=== PATIENT | male | born 1980 | race African-American/Black ===

== ENCOUNTER 2018-05-12 12:32 | Emergency (ER) | payer SELFPAY ==
[2018-05-12 12:46] VITALS: BP 146/93
[2018-05-12] MEDS ORDERED: LIDOCAINE 5% (700 MG) TRANSDERMAL ADH..PATCH TP ONE (12:53)
[2018-05-12] MEDS ORDERED: KETOROLAC TROMETHAMINE 60 MG/2 ML SDV IM ONE (12:53)
--- NOTE | 2018-05-12 12:57 | ER Document Report ---
HPI - HPI Time Seen by Provider: 05/12/18 12:48 Pain Level: 5 Notes: Patient is a 37-year-old male with a h/o opiod dependence previously being on suboxone who presents to the ED complaining of mildline lower back pain times 1 day. Patient states that he was working on his car and was bending over when he stood up and felt a sharp pain in his back. Patient states that bending twisting of the trunk make his pain worse. Pain does not radiate. He is eating and drinking without any difficulties. He is urinating normally and having normal bowel movements. He has not had any injections or procedures to his lower back. Denies any IV drug abuse or history of spinal abscess. No other concerns or complaints. Denies any headache, fever, head injury, neck pain, changes in vision/speech/mentation/hearing, URI, sore throat, chest pain, palpitations, syncope, cough, shortness of breath, wheeze, dyspnea, abdominal pain, nausea/vomiting/diarrhea, urinary retention, dysuria, hematuria, loss of control of bowel or bladder, numbness/tingling, saddle anesthesia, muscle paralysis/weakness, or rash. 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 LUNGS: Breath sounds clear to auscultation bilaterally and equal. No wheezes rales or rhonchi. HEART: Regular rate and rhythm without murmurs, rubs, gallops. ABDOMEN: Soft, nontender, nondistended abdomen. No guarding, no rebound. No masses appreciated. Normal bowel sounds present. No CVA tenderness bilaterally. No pulsatile mass Musculoskeletal: LE's b/l: FROM to passive/active. Strength 5+/5. No deficits noted. No bony tenderness of extremities. Back: FROM to passive/active. Strength 5+/5. No stepoffs or deformities. No other bony tenderness, erythema, swelling, or ecchymosis. SLR negative b/l. + mild tenderness to the mildline near L2-3. Mild spasming. No SI jt tenderness. No foot drop Extremities: No cyanosis, clubbing, or edema b/l. Peripheral pulses 2+. Capillary refill less than 2 seconds. NEUROLOGICAL: Normal speech, normal gait. Normal sensory, motor exams. Reflexes 2+ b/l. PSYCH: Normal mood, normal affect. SKIN: Warm, Dry, normal turgor, no rashes or lesions noted. - INFECTION CONTROL TRAVEL OUTSIDE OF THE [place] IN LAST 30 DAYS: No Course - Re-evaluation Re-evalutation: 05/12/18 13:51 Patient is an afebrile, well-hydrated, 37-year-old male who presents to the ED with acute low back pain, suspect probable strain/sprain. Vitals are acceptable. PE is otherwise unremarkable for any focal neurological deficits. See XR, reviewed with pt to f/u with ortho. Patient was given Toradol and Lidoderm patch. He has no significant tachycardia, tachypnea, or hypoxia. He is nontoxic-appearing and is tolerating p.o. without difficulties. There are no signs of infection. No other red flag symptoms noted. No other labs or imaging warranted at this time based on H&P. Low suspicion for any meningitis, fracture, expanding/ruptured AAA, cauda equina syndrome, epidural mass lesion/abscess, herniated disc causing severe spinal stenosis, or other systemic infection at this time. Patient is aware that his condition can change from initial presentation and that he needs monitor symptoms closely for any acute changes. I will send him home with a prescription for flexeril and naproxen. Conservative measures otherwise for symptoms. Recheck with your PCM in 3-5 days. Consider consult with orthopedic/physical therapy. Return to the ED with any worsening/concerning symptoms otherwise as reviewed discharge. Patient is in agreement. - Vital Signs Vital signs: Temp Pulse Resp BP Pulse Ox 98.3 F 89 16 146/93 H 98 05/12/18 12:45 05/12/18 12:45 05/12/18 12:45 05/12/18 12:45 05/12/18 12:45 Discharge - Discharge Clinical Impression: Low back pain Qualifiers: Chronicity: acute Back pain laterality: midline Sciatica presence: without sciatica Qualified Code(s): M54.5 - Low back pain Condition: Stable Disposition: HOME, SELF-CARE Instructions: Low Back Pain ([facility]), Stretching Exercises for the Back ([facility]) Additional Instructions: Rest, Ice Tylenol/ibuprofen as needed Light stretches daily Strength exercises as able Moist heat and massage may help F/u with your PCP in 3-5 days for a recheck Consider consult(s) with Orthopedics/physical therapy for ongoing/worsening symptoms Return to the ED with any worsening symptoms and/or development of fever, headache, chest pain, palpitations, syncope, shortness of breath, trouble breathing, abdominal pain, n/v/d, blood in stool/urine, loss of control of bowel/bladder, urinary retention, muscle weakness/paralysis, saddle anesthesia, numbness/tingling, or other worsening symptoms that are concerning to you. Prescriptions: Cyclobenzaprine HCl [Flexeril 10 mg Tablet] 10 mg PO TIDP PRN #15 tab PRN Reason: Naproxen 500 mg PO BID #20 tablet Forms: Elevated Blood Pressure Referrals: [facility] ([facility]) [Provider Group] - Follow up as needed
--- NOTE | 2018-05-12 13:45 | RADIOLOGY REPORT (SQ) ---
EXAM DESCRIPTION: L SPINE WHOLE COMPLETED DATE/TIME: 05/12/2018 1:31 pm REASON FOR STUDY: midline back pain near L2-4 COMPARISON: None. NUMBER OF VIEWS: Five views including obliques. TECHNIQUE: AP, lateral, oblique, and sacral radiographic images acquired of the lumbar spine. LIMITATIONS: None. FINDINGS: MINERALIZATION: Normal. SEGMENTATION: Normal. No transitional anatomy. ALIGNMENT: Grade 1 anterolisthesis of L5 on S1. VERTEBRAE: Maintained height. No fracture or worrisome bone lesion. DISCS: Preserved height. No significant osteophytes or end plate irregularity. POSTERIOR ELEMENTS: Pedicles and facets are intact. Bilateral L5 pars interarticularis defects. HARDWARE: None in the spine. PARASPINAL SOFT TISSUES: Normal. PELVIS: Intact as visualized. No fractures or worrisome bone lesions. SI joints intact. OTHER: No other significant finding. IMPRESSION: No acute osseous findings. Bilateral L5 pars interarticularis defects with Grade 1 ante rolisthesis of L5 on S1. TECHNICAL DOCUMENTATION: JOB ID: [id number] [place]-72 2010 [employer]- All Rights Reserved Reading location - IP/workstation name: [email or web address]
== END 2018-05-12 14:04 | disposition home or self-care (01) ==
LOC: ER 12:32
DX: M54.5 Low back pain (principal); R25.2 Cramp and spasm; E11.9 Type 2 diabetes mellitus without complications
CPT/HCPCS: 99283; 96372; 72110; J1885

== ENCOUNTER 2019-05-26 17:54 | Emergency (ER) | payer SELFPAY ==
[2019-05-26 18:11] VITALS: BP 145/96
[2019-05-26] MEDS ORDERED: HYDROCODONE/ACETAMINOPHEN 5-325 MG (6 TAB/ER DISP) PO PRN (18:28)
--- NOTE | 2019-05-26 18:33 | ER Document Report ---
HPI - HPI Time Seen by Provider: 05/26/19 18:19 Pain Level: 4 Context: Patient is a 38-year-old male who presents to the emergency department with a chief complaint of left jaw pain. Patient states that he has had his jaw pain for the past 2 weeks. Patient states that sometimes he feels like his jaw will lock up every once in a while. Patient denies any tooth pain. Patient denies any shortness of breath. He has been taking ibuprofen and Tylenol for the pain, but has had little relief. He ended up backing up off the ibuprofen due to his stomach starting to hurt. Patient denies any nausea or vomiting. - CONSTITUTIONAL Constitutional: DENIES: Fever, Chills - EENT EENT: DENIES: Sore Throat, Ear Pain, Nasal Drainage-Clear, Nasal Drainage- Purulent, Congestion, Eye problems Notes: Left inferior jaw pain - CARDIOVASCULAR Cardiovascular: DENIES: Chest pain - RESPIRATORY Respiratory: DENIES: Trouble Breathing, Coughing - REPRODUCTIVE Reproductive: DENIES: : - MUSCULOSKELETAL Musculoskeletal: REPORTS: Swelling - Left side of neck. 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 IN LAST 30 DAYS: No - HEENT HEENT: Atraumatic, Normocephalic, PERRLA - NECK Neck: Normal Inspection, Lymphadenopathy-Left. negative: Lymphadenopathy-Right Notes: Clear oropharynx - RESPIRATORY Respiratory: Breath Sounds Normal, No Respiratory Distress - CARDIOVASCULAR Cardiovascular: Regular Rate, Regular Rhythm Pulses: Normal: Radial - MUSCULOSKELETAL/EXTREMETIES Musculoskeletal/Extremeties: FROM - NEURO Level of Consciousness: Awake, Alert, Appropriate Motor/Sensory: No Motor Deficit, No Sensory Deficit - DERM Integumentary: Warm, Dry, No Rash Course - Re-evaluation Re-evalutation: 05/26/19 It appears as the patient may have parotitis, but I had a lengthy conversation with the patient and he states that he does not have health insurance at this time. I offered him a course of Augmentin and to follow-up here in the emergency department if his symptoms are not any better. He is in agreement with this plan. No peritonsillar abscess noted on physical exam. Patient will [facility] with [facility] or [facility]. Follow-up precautions were given. Verbal discharge instructions were given to the patient. They verbalized understanding. They are stable for discharge. - Vital Signs Vital signs: Temp Pulse Resp BP Pulse Ox 98.6 F 102 H 20 145/96 H 99 05/26/19 18:09 05/26/19 18:09 05/26/19 18:09 05/26/19 18:09 05/26/19 18:09 Discharge - Discharge Clinical Impression: Jaw pain Condition: Stable Disposition: HOME, SELF-CARE Additional Instructions: You were seen today in the emergency department for jaw pain. You are being placed on antibiotics for your jaw pain. The antibiotics may give you diarrhea and I recommend that you buy [id number] probiotic to help prevent that. Please follow-up with the dentist to see if you have a cavity. For your pain, you are being sent home with [place], which is a narcotic pain medication. Please try to only take this at night, as it may make you sleepy. Continue to take ibuprofen 600 mg and acetaminophen 1000 mg every 6 hours for your pain. If it bothers your stomach, take Pepcid, which she can buy [id number] or use the prescription given to you. If you are not any better, please return to the emergency department. Prescriptions: Amoxicillin/Potassium Clav [Augmentin 875-125 Tablet] 1 tab PO BID #20 tab Famotidine [Pepcid 20 mg Tablet] 20 mg PO BID #12 tablet Oxycodone HCl/Acetaminophen [Percocet 5-325 mg Tablet] 1 - 2 tab PO Q4H PRN #15 tablet PRN Reason: Ondansetron [Zofran Odt 4 mg Tablet] 1 - 2 tab PO Q4H PRN #15 tab.rapdis PRN Reason: For Nausea/Vomiting Referrals: [facility] [Provider Group] - Follow up in 1 week
== END 2019-05-26 18:45 | disposition home or self-care (01) ==
LOC: ER 17:54
DX: R68.84 Jaw pain (principal); E78.00 Pure hypercholesterolemia, unspecified; E11.9 Type 2 diabetes mellitus without complications; F17.200 Nicotine dependence, unspecified, uncomplicated
CPT/HCPCS: 99283

== ENCOUNTER 2019-05-29 09:32 | Emergency (ER) | payer SELFPAY ==
[2019-05-29 10:13] VITALS: BP 169/104
--- NOTE | 2019-05-29 10:22 | ER Document Report ---
HPI - HPI Time Seen by Provider: 05/29/19 10:17 Notes: CHIEF COMPLAINT: Medication refill, dental pain HPI: 38-year-old male presenting to the emergency department requesting refills of pain medication. States he was here 3 to 4 days ago with dental infection. Has an appointment in 3 days with a dentist but ran out of his pain medications, states he is still taking the Augmentin and is seeing some improvement in the swelling but still having moderate discomfort. No fevers. ROS: See HPI - all other systems were reviewed and are otherwise negative Constitutional: no fever Eyes: no drainage, no blurred vision ENT: no runny nose, no sore throat, positive dental pain Integumentary: no rash Allergy: no hives MEDICATIONS: I agree with the patient medications as charted by the RN. ALLERGIES: I agree with the allergies as charted by the RN. PAST MEDICAL HISTORY/PAST SURGICAL HISTORY: Reviewed and agree as charted by RN. SOCIAL HISTORY: Reviewed and agree as charted by RN. FAMILY HISTORY: No significant familial comorbid conditions directly related to patient complaint EXAM: Reviewed vital signs as charted by RN. CONSTITUTIONAL: Alert and oriented and responds appropriately to questions. Well-appearing; well-nourished, mild distress secondary to pain HEAD: Normocephalic; atraumatic EYES: PERRL; Conjunctivae clear, sclerae non-icteric ENT: normal nose; no rhinorrhea; moist mucous membranes; pharynx without lesions noted, no uvula edema or deviation, no tonsillar hypertrophy, phonation normal. There is moderate preauricular lymphadenopathy left face. Moderate caries to the left lower third molar. No trismus. No sublingual swelling. NECK: Supple without meningismus; non-tender; no cervical lymphadenopathy, no masses CARD: Capillary refill less than 3 seconds, symmetric distal pulses RESP: Normal chest excursion without splinting or tachypnea ABD/GI: non-distended; BACK: The back appears normal EXT: Normal ROM in all joints; no cyanosis, no effusions, no edema SKIN: Normal color for age and race; warm; dry; good turgor NEURO: Moves all extremities equally; Motor and sensory function intact PSYCH: The patient's mood and manner are appropriate. Grooming and personal hygiene are appropriate. MDM: 38-year-old male presenting for medication refill. Has been on Augmentin for a dental infection still with moderate left preauricular lymphadenopathy. Patient was placed on Percocet previously will change patient from ibuprofen to Voltaren. 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 IN LAST 30 DAYS: No Course - Vital Signs Vital signs: Temp Pulse Resp BP Pulse Ox 98.1 F 98 18 169/104 H 98 05/29/19 10:11 05/29/19 10:11 05/29/19 10:11 05/29/19 10:11 05/29/19 10:11 Discharge - Discharge Clinical Impression: Abscess, dental, Medication refill Condition: Stable Disposition: HOME, SELF-CARE Additional Instructions: Continue the antibiotics as previously prescribed. Stop the ibuprofen and start the Voltaren. You will need to obtain further pain medications from the dentist you are going to follow with Prescriptions: Oxycodone HCl/Acetaminophen [Percocet 5-325 mg Tablet] 1 tab PO Q4H PRN #15 tablet PRN Reason: Diclofenac Sodium [Voltaren 50 Mg Tablet.] 50 mg PO BID #20 tablet.
== END 2019-05-29 10:28 | disposition home or self-care (01) ==
LOC: ER 09:32
DX: Z76.0 Encounter for issue of repeat prescription (principal); K04.7 Periapical abscess without sinus; K02.9 Dental caries, unspecified; R59.0 Localized enlarged lymph nodes; E11.9 Type 2 diabetes mellitus without complications
CPT/HCPCS: 99281

== ENCOUNTER 2019-06-06 08:30 | Emergency (ER) | payer SELFPAY ==
[2019-06-06] MEDS ORDERED: CEFTRIAXONE INJ 1000 MG VIAL IM ONE (09:58)
[2019-06-06] MEDS ORDERED: KETOROLAC TROMETHAMINE 60 MG/2 ML SDV IM ONE (09:59)
[2019-06-06] MEDS ORDERED: LIDOCAINE 1% INJ (10 MG/ML) 10 ML MDV INJ ONE (10:20)
--- NOTE | 2019-06-06 11:00 | ER Document Report ---
Entered by PETR SOSA SCRIBE 06/06/19 1001 Acting as scribe for:EWA AGUIRRE MD ED ENT - General Chief Complaint: Headache Stated Complaint: HEADACHE, FACIAL/JAW PAIN Time Seen by Provider: 06/06/19 09:22 Mode of Arrival: Ambulatory Information source: Patient Notes: This 39-year-old male patient presents to the emergency department today with complaints of left-sided facial swelling and dental pain. Patient mentions that he was seen here on 05/29 and was started on antibiotics and was given pain medication. Patient states that he followed up at the [facility] yesterday but they told him it was not his tooth and they would not pull it. Patient here requesting pain medication, stating he only has gotten one prescription for pain meds and he is now out. When reviewing external pharmacy records, it appears the patient filled pain medication from this facility on 05/26, 05/29, and from a dentist on 06/02 which he did not mention. TRAVEL OUTSIDE OF THE [place] IN LAST 30 DAYS: No - Related Data Allergies/Adverse Reactions: No Known Allergies Allergy (Verified 06/06/19 08:36) Home Medications: Oxycodone. 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 and was treated by history Endocrine Medical History: Reports: Hx Diabetes Mellitus Type 2 - Immunizations Hx Diphtheria, Pertussis, Tetanus Vaccination: Yes Hx Pneumococcal Vaccination: 07/07/11 Review of Systems - Review of Systems Constitutional: No symptoms reported EENT: See HPI, Mouth pain, Mouth swelling, Dental problem Cardiovascular: No symptoms reported Respiratory: No symptoms reported Gastrointestinal: No symptoms reported Genitourinary: No symptoms reported Male Genitourinary: No symptoms reported Musculoskeletal: No symptoms reported Skin: No symptoms reported Hematologic/Lymphatic: No symptoms reported Neurological/Psychological: No symptoms reported -: Yes All other systems reviewed and negative Physical Exam - Vital signs Vitals: Temp Pulse Resp BP Pulse Ox 98.2 F 107 H 16 157/111 H 98 06/06/19 08:34 06/06/19 08:34 06/06/19 08:34 06/06/19 08:34 06/06/19 08:34 - Notes Notes: Physical Exam: General: Alert, appears uncomfortable. HEENT: Normocephalic. Atraumatic. PERRL. Extraocular movements intact. No posterior oropharynx erythema or exudate, airway is patent. TMs are clear and non-bulging bilaterally. Left upper third molar is fractured with multiple caries, surrounding gum swelling and erythema. There is tenderness to palpation just anterior to the left earlobe. No mastoid tenderness with palpation. No temporal artery tenderness with palpation. Neck: Supple. Non-tender. Respiratory: No respiratory distress. Clear and equal breath sounds bilaterally. Cardiovascular: Regular rate and rhythm. Abdominal: Normal Inspection. Non-tender. No distension. Normal Bowel Sounds. Back: No gross abnormalities. Extremities: Moves all four extremities. Upper extremities: Normal inspection. Normal ROM. Lower extremities: Normal inspection. No edema. Normal ROM. Neurological: Normal cognition. AAOx4. Normal speech. Psychological: Normal affect. Normal Mood. Skin: Warm. Dry. Normal color. Course - Vital Signs Vital signs: Temp Pulse Resp BP Pulse Ox 98.2 F 107 H 16 157/111 H 98 06/06/19 08:34 06/06/19 08:34 06/06/19 08:34 06/06/19 08:34 06/06/19 08:34 Discharge - Discharge Clinical Impression: Dental caries, Infected dental carries Condition: Stable Disposition: HOME, SELF-CARE Additional Instructions: Dental Infection or Abscess You have an infection, perhaps an abscess (pus formation) of the gum around one of your teeth, which is probably decayed. If there is an abscess, it may drain on its own or it may need to be opened or lanced. Severe swelling or drainage around a tooth usually means a deep dental abscess which usually requires evaluation and treatment by a dentist or oral surgeon. Antibiotics may be prescribed while awaiting dental treatment. If you develop high fever with chills, worsening pain, or increasing swelling in the area, see a dentist or oral surgeon immediately or return to the Emergency Department immediately. Continue with Augmentin 875 mg twice daily x 10 days. Contininue with diclofenac as needed forpain/swelling. Consider tylenol if needed forpain. Follow up with Dentist. Prescriptions: Amoxicillin/Potassium Clav [Augmentin 875-125 Tablet] 1 tab PO BID #20 tab I personally performed the services described in the documentation, reviewed and edited the documentation which was dictated to the scribe in my presence, and it accurately records my words and actions.
[2019-06-06 11:37] VITALS: BP 150/80
== END 2019-06-06 11:41 | disposition home or self-care (01) ==
LOC: ER 08:30
DX: K02.9 Dental caries, unspecified (principal); K04.7 Periapical abscess without sinus; R68.84 Jaw pain; F17.210 Nicotine dependence, cigarettes, uncomplicated; E78.00 Pure hypercholesterolemia, unspecified; E11.9 Type 2 diabetes mellitus without complications
CPT/HCPCS: 99283; 96372; J1885; J0696

== ENCOUNTER 2019-06-07 13:39 | Emergency (ER) | payer SELFPAY ==
[2019-06-07] MEDS ORDERED: ASPIRIN 81 MG TABLET, CHEWABLE PO ONE (14:02)
--- NOTE | 2019-06-07 14:02 | ER Document Report ---
ED Medical Screen (RME) - General Chief Complaint: Chest Pain Stated Complaint: LEFT SIDE HEAD/JAW PAIN, CHEST PAIN, SHORT BREATH Time Seen by Provider: 06/07/19 13:57 Mode of Arrival: Ambulatory Information source: Patient Notes: 39-year-old male presented to ED for complaint of chest heaviness discomfort, pain to the left side of his face, feels like someone is stabbing him in the amish, and shortness of breath. He states he has been here several times and is gotten different kind of medications but nothing has relieved the pain or heaviness. He states he continues to have periods of being very short of breath and feels like someone is pushing on his chest. He was on Percocet that was given him some help to sleep but was not really completely relieving the pain. It seemed his parents brought him to the ED I have greeted and performed a rapid initial assessment of this patient. A comprehensive ED assessment and evaluation of the patient, analysis of test results and completion of medical decision making process will be conducted by an additional ED providers. TRAVEL OUTSIDE OF THE [place] 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
--- NOTE | 2019-06-07 14:43 | RADIOLOGY REPORT (SQ) ---
EXAM DESCRIPTION: CHEST 2 VIEWS COMPLETED DATE/TIME: 06/07/2019 1:23 pm REASON FOR STUDY: Chest pain and discomfort COMPARISON: 07/05/2011 EXAM PARAMETERS: NUMBER OF VIEWS: two views TECHNIQUE: Digital Frontal and Lateral radiographic views of the chest acquired. RADIATION DOSE: NA LIMITATIONS: none FINDINGS: LUNGS AND PLEURA: No opacities, masses or pneumothorax. No pleural effusion. MEDIASTINUM AND HILAR STRUCTURES: No masses or contour abnormalities. HEART AND VASCULAR STRUCTURES: Heart normal size. No evidence for failure. BONES: No acute findings. HARDWARE: None in the chest. OTHER: No other significant finding. IMPRESSION: NO ACUTE RADIOGRAPHIC FINDING IN THE CHEST. TECHNICAL DOCUMENTATION: JOB ID: [id number] 2010 [employer]- All Rights Reserved Reading location - IP/workstation name: [email or web address]
[2019-06-07 14:45] LABS: ALBUMIN 4.2 g/dL (3.5-5.0); ALKALINE PHOSPHATASE 93 U/L (38-126); ANION GAP 16 (5-19); ASPARTATE AMINO TRANSFERASE 33 U/L (17-59); BILIRUBIN,DIRECT 0.1 mg/dL (0.0-0.4); BILIRUBIN,TOTAL 0.6 mg/dL (0.2-1.3); BLOOD UREA NITROGEN 15 mg/dL (7-20); CARBON DIOXIDE 19 mmol/L (22-30); CHLORIDE 99 mmol/L (98-107); GLUCOSE 267 mg/dL (75-110); POTASSIUM 4.8 mmol/L (3.6-5.0); TOTAL PROTEIN 8.2 g/dL (6.3-8.2)
[2019-06-07 14:47] LABS: CALCIUM 10.1 mg/dL (8.4-10.2)
--- NOTE | 2019-06-07 14:47 | EKG REPORT ---
SEVERITY:- NORMAL ECG - SINUS RHYTHM : Confirmed by: Leonardo Leahy MD 07-Jun-2019 14:47:13
[2019-06-07 14:48] LABS: HEMATOCRIT 38.8 % (37.9-51.0); MEAN CORPUSCULAR VOLUME 81 fl (80-97); PLATELET COUNT 349 10^3/uL (150-450); RED BLOOD COUNT 4.82 10^6/uL (4.35-5.55); RED CELL DISTRIBUTION WIDTH 13.5 % (11.5-14.0); WHITE BLOOD COUNT 9.2 10^3/uL (4.0-10.5)
[2019-06-07 15:20] LABS: ABSOLUTE LYMPHOCYTES# (MANUAL) 2.7 10^3/uL (0.5-4.7); ABSOLUTE MONOCYTES # (MANUAL) 0.4 10^3/uL (0.1-1.4); BASOPHILS % (MANUAL) 0 % (0-2); EOSINOPHILS % (MANUAL) 1 % (0-6); LYMPHOCYTES % (MANUAL) 29 % (13-45); MONOCYTES % (MANUAL) 4 % (3-13); SEGMENTED NEUTROPHILS % (MAN) 66 % (42-78); TOTAL CELLS COUNTED 100
[2019-06-07 15:21] LABS: PLATELET COMMENT ADEQUATE; RBC MORPHOLOGY COMMENT NORMO-CYTIC/CHROMIC
[2019-06-07 15:27] LABS: MEAN CORPUSCULAR HEMOGLOBIN 27.1 pg (27.0-33.4); MEAN CORPUSCULAR HGB CONC 33.6 g/dL (32.0-36.0)
--- NOTE | 2019-06-07 16:04 | RADIOLOGY REPORT (SQ) ---
EXAM DESCRIPTION: CT FACIAL AREA WITH COMPLETED DATE/TIME: 06/07/2019 3:49 pm REASON FOR STUDY: Pain and swelling left side of the face COMPARISON: None. TECHNIQUE: Post contrast images through the facial bones and orbits windowed for bone and soft tissu e. Additional coronal and sagittal reconstructed images reviewed. All images stored on PACS. All CT scanners at this facility use dose modulation, iterative reconstruction, and/or weight based d osing when appropriate to reduce radiation dose to as low as reasonably achievable (ALARA). [facility]: Dose Right [facility]: CareDose [facility]: Dose Right [facility]: Teradose 4D [facility]: AVdirect CONTRAST TYPE AND DOSE: contrast/concentration: Isovue 350.00 mg/ml; Total Contrast Delivered: 75.0 ml; Total Saline Delivered: 47.0 ml RENAL FUNCTION: GFR > 60. RADIATION DOSE: CT Rad equipment meets quality standard of care and radiation dose reduction techniq ues were employed. CTDIvol: 30.4 mGy. DLP: 676 mGy-cm. . LIMITATIONS: None. FINDINGS: FACIAL BONES: No fracture or bone lesion. ORBITS: Intact. No fracture. Symmetric intact globes and retroorbital soft tissues. PARANASAL SINUSES: Clear. No significant mucosal thickening, mass or fluid. No nasal polyps. Maxilla ry sinus outlets are patent. SOFT TISSUES: No mass or edema. No abnormal enhancement. INFERIOR BRAIN: Limited view. No acute findings. OTHER: No other significant finding. IMPRESSION: NO ACUTE FINDINGS. TECHNICAL DOCUMENTATION: JOB ID: [id number] Quality ID # [id number]: Final reports with documentation of one or more dose reduction techniques (e.g., Au tomated exposure control, adjustment of the mA and/or kV according to patient size, use of iterative reconstruction technique) 2010 [employer]- All Rights Reserved Reading location - IP/workstation name: [email or web address]
[2019-06-07] MEDS ORDERED: KETOROLAC TROMETHAMINE INJ/PF 30 MG/1 ML SDV IV ONE (16:36)
[2019-06-07] MEDS ORDERED: NORMAL SALINE 1000 ML 1,000 ML IV ONE (16:37)
--- NOTE | 2019-06-07 16:45 | ER Document Report ---
ED General - General Chief Complaint: Chest Pain Stated Complaint: LEFT SIDE HEAD/JAW PAIN, CHEST PAIN, SHORT BREATH Time Seen by Provider: 06/07/19 13:57 Mode of Arrival: Ambulatory TRAVEL OUTSIDE OF THE [place] IN LAST 30 DAYS: No - HPI Notes: Mr. Adams is an 39-year-old male presenting with a chief complaint of persistent pain in left jaw area radiating to left catholic for the past 2 weeks. This man is a type I diabetic who was apparently taken off insulin more than 18 months ago by primary care provider because he "Bottoming out" on his blood sugars. He apparently has not been back for regular follow-up and has no concept of hemoglobin A1c or measuring home blood sugars. He denies vomiting fever or chills. He has been to a dentist and was told that he had a decayed tooth initially and then saw a second dentist and told with tooth did not need to be extracted. He was seen here yesterday by another provider who felt that he had a dental abscess and was given oxycodone for pain and he is also taking Augmentin orally. He says he is no better and was unable to sleep last night. - Related Data Allergies/Adverse Reactions: No Known Allergies Allergy (Verified 06/06/19 08:36) Home Medications: glipizide, pepcid, percocet, diclofenc, augmentin Past Medical History - General Information source: Patient, Relative - Social History Smoking Status: Current Every Day Smoker Chew tobacco use (# tins/day): No Frequency of alcohol use: Social Drug Abuse: None Occupation: Unemployed aviation electrician Lives with: Family Family History: Reviewed & Not Pertinent Patient has suicidal ideation: No Patient has homicidal ideation: No - Past Medical History Cardiac Medical History: Reports: Hx Hypercholesterolemia - no meds, extremely high triglycerides and cholesterol in 2011., Hx Heart Murmur Pulmonary Medical History: Reports: Hx Tuberculosis - 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 HENT: Negative for sore throat. Eyes: Negative for visual changes. Cardiovascular: Negative for chest pain. Respiratory: Negative for shortness of breath. Gastrointestinal: Negative for abdominal pain, vomiting or diarrhea. Genitourinary: Negative for dysuria. Musculoskeletal: Negative for back pain. Skin: Negative for rash. Neurological: Negative for headaches, weakness or numbness. 10 point ROS negative except as marked above and in HPI. Physical Exam - Vital signs Vitals: Temp Pulse Resp BP Pulse Ox 98.5 F 107 H 20 173/112 H 99 06/07/19 13:59 06/07/19 13:59 06/07/19 13:59 06/07/19 13:59 06/07/19 13:59 - Notes Notes: GENERAL: Well-developed well-nourished appearing approximately stated age in mild distress secondary to pain. SKIN: Good turgor no rashes. HEAD: Normocephalic atraumatic. Patient has some soft tissue swelling and tenderness over the area of the jaw on the left side and there is some tenderness extending up to the catholic on the left side. There is no redness or warmth. EYES: PERRLA. EOMI. Conjunctivae and sclerae clear. EARS: CANALS AND TMS CLEAR. NOSE: CLEAR. MOUTH: Moist mucosa. Patient has visible dental decay of the anterior surface of the left second mandibular molar. This is exquisitely tender to percussion he has some mild soft tissue swelling of the adjacent gum. No stridor or edema. No drooling. NECK: Supple. No masses or thyromegaly. Tender anterior cervical nodes on the left. Carotids 2+ without bruits. No JVD. BACK: Symmetrical without tenderness. CHEST: Respirations unlabored. Breath sounds clear and symmetrical. HEART: Regular rhythm. No murmur gallop or rub. ABDOMEN: Soft nontender without masses, organomegaly or rebound. Bowel sounds normally active. No bruits. GENITALIA: Deferred. EXTREMITIES: No edema. No calf tenderness. Cap refill less than 1.5 seconds. Dorsalis pedis and posterior tibial pulses 3+ and symmetrical. NEUROLOGICAL: GCS 15. Alert and oriented x3. Normal gait. Fluent speech. C ranial nerves II through XII intact. Sensorimotor and cerebellar normal. Normal tone. PSYCHIATRIC: Anxious affect. Course - Re-evaluation Re-evalutation: 06/07/19 16:45 Patient's blood glucose is 267 here. His bicarb on his chemistry profile is 19. I am going to check a venous blood gas on him. I will also check a hemoglobin A1c level. I will give him a dose of IV clindamycin and some IV Toradol along with some IV normal saline. Midlevel at triage had already ordered a facial CT and this shows some soft tissue swelling only per radiologist. Chest x-ray is normal. His EKG shows normal sinus rhythm with no ST changes. His troponin is normal. White count is normal. I have also requested a urinalysis. 06/07/19 16:46 - Vital Signs Vital signs: Temp Pulse Resp BP Pulse Ox 98.5 F 107 H 13 142/105 H 100 06/07/19 13:59 06/07/19 13:59 06/07/19 21:01 06/07/19 21:01 06/07/19 21:01 - Laboratory Result Diagrams: 06/07/19 14:10 06/07/19 14:10 Laboratory results interpreted by me: 06/07/19 06/07/19 06/07/19 14:10 14:10 14:10 Hgb 13.0 L Sodium 133.5 L Carbon Dioxide 19 L Glucose 267 H POC Glucose Hemoglobin A1c % 9.2 H Urine Protein Urine Glucose (UA) Urine Ketones 06/07/19 06/07/19 18:00 20:23 Hgb Sodium Carbon Dioxide Glucose POC Glucose 234 H Hemoglobin A1c % Urine Protein 100 H Urine Glucose (UA) >=500 H Urine Ketones 20 H - Diagnostic Test Radiology reviewed: Reports reviewed - EKG Interpretation by Me Additional EKG results interpreted by me: 06/07/19 16:46 Twelve-lead EKG from 1355 hrs. is reviewed contemporaneously by me demonstrating a normal sinus rhythm with a rate of 99, normal QRS axis, normal intervals and no acute ST/T wave changes. Discharge - Discharge Clinical Impression: Infected dental carries, Diabetes mellitus type 2, Essential hypertension, Noncompliance Condition: Stable Disposition: HOME, SELF-CARE Additional Instructions: Avoid consumption of sweets and sugar. Avoid excessive intake of starchy foods such as rice bread potatoes and pasta. Restart insulin as instructed. Follow-up with primary care physician and dentist as soon as possible. Prescriptions: Clindamycin HCl 300 mg PO TID #30 capsule Insulin NPH Hum/Reg Insulin Hm [Humulin 70/30 Kwikpen] 20 unit SQ QAM 14 Days #5 ml Amlodipine Besylate [Norvasc 2.5 mg Tablet] 2.5 mg PO DAILY #30 tablet Oxycodone HCl/Acetaminophen [Percocet 5-325 mg Tablet] 2 tab PO Q6H PRN 2 Days #12 tablet PRN Reason: Referrals: [facility] [Provider Group] - Follow up as needed [facility] [Provider Group] - Follow up as needed [facility] [Provider Group] - Follow up as needed
[2019-06-07] MEDS ORDERED: CLINDAMYCIN 600 MG/D5W RTU 600 MG/50 ML RTUPB IV SCH (17:00)
[2019-06-07] MEDS ORDERED: CLONIDINE HCL 0.1 MG TABLET PO ONE (18:37)
[2019-06-07 18:38] LABS: APPEARANCE,URINE CLEAR; BILIRUBIN,URINE NEGATIVE (NEGATIVE); COLOR,URINE YELLOW; GLUCOSE, URINE >=500 mg/dL (NEGATIVE); KETONES,URINE 20 mg/dL (NEGATIVE); PROTEIN,URINE 100 mg/dL (NEGATIVE); URINE SPECIFIC GRAVITY 1.059; UROBILINOGEN,URINE NEGATIVE mg/dL (<2.0)
[2019-06-07 18:48] LABS: VENOUS BLOOD BASE EXCESS -3.6 mmol/L; VENOUS BLOOD HCO3 22.5 mmol/L (20-32); VENOUS BLOOD PCO2 44.5 mmHg (35-63); VENOUS BLOOD PH 7.32 (7.30-7.42)
[2019-06-07 19:03] LABS: URINE AMPHETAMINES SCREEN NEGATIVE; URINE BARBITURATES SCREEN NEGATIVE; URINE BENZODIAZEPINES SCREEN NEGATIVE; URINE COCAINE SCREEN NEGATIVE; URINE MARIJUANA (THC) SCREEN NEGATIVE; URINE METHADONE SCREEN NEGATIVE; URINE PHENCYCLIDINE SCREEN NEGATIVE
[2019-06-07] MEDS ORDERED: OXYCODONE-ACETAMINOPHEN 5-325 MG TABLET PO ONE (20:28)
[2019-06-07 22:30] VITALS: BP 140/98
== END 2019-06-07 22:23 | disposition home or self-care (01) ==
LOC: ER 13:39
DX: K04.7 Periapical abscess without sinus (principal); K02.9 Dental caries, unspecified; I10 Essential (primary) hypertension; E11.65 Type 2 diabetes mellitus with hyperglycemia; Z91.19 Patient's noncompliance with other medical treatment and regimen; Z79.84 Long term (current) use of oral hypoglycemic drugs; Z79.891 Long term (current) use of opiate analgesic; Z79.899 Other long term (current) drug therapy; Z79.1 Long term (current) use of non-steroidal anti-inflammatories (NSAID); F17.200 Nicotine dependence, unspecified, uncomplicated
CPT/HCPCS: 93005; 99285; 96375; 96365; 36415; 82962; 85025; 80053; 81001; 84484; 80307; 83036; 82803; 71046; 70487; 93010; J1885; J7030